=== PATIENT | male | born 1965 | race Caucasian/White ===

== ENCOUNTER → 2024-02-10 11:21 | Outpatient (CLI) | payer OTHER, SELFPAY ==
--- NOTE | 2024-02-10 11:25 | DI.MRI.S_ITS ---
PROCEDURE: MR PELVIC PROSTATE PROTOCOL INDICATIONS: Elevated PSA TECHNIQUE: Coronal HASTE, axial T1 FSE with fat saturation, 3-plane nonbreath-hold T2 FSE. After the administration of contrast, dynamic axial, delayed axial and coronal VIBE or 2-D FLASH with fat saturation through the pelvis. Diffusion weighted imaging and ADC was performed. COMPARISON: None. FINDINGS: Image quality: Diffusion weighted and dynamic contrast enhanced images are diagnostic. Prostate: Gland size is 5.8 x 4.7 x 5.3 cm; ellipsoid gland volume is 75 mL. Lesion 1: Location: Right anterior transition zone of the mid gland, on axial series 4, image 12 and coronal series 5, image 8. Size: 1.4 x 1.0 cm. T2W signal: Hypointense, partially capsulated. DWI signal: Markedly hyperintense. ADC signal: Markedly hypointense. Enhancement: Yes. Extracapsular extension: No. No neurovascular involvement. PI-RADS score: 3 Genitourinary system: Bladder wall thickness is normal. Distal ureters are non distended. Bowel and peritoneum: No pathologic free pelvic fluid. Inferior colon and small bowel loops are normal in caliber. Nodes and vessels: No pelvic or inguinal adenopathy by size criteria. Iliac vessels are normal in caliber. Soft tissues: Small amount of fat within the inguinal canals. Bones: Marrow demonstrates normal overall signal, without lesions to suggest metastases. IMPRESSION: PI-RADS 3 lesion in the anterior transition zone of the mid gland. No pelvic lymphadenopathy by size criteria. No aggressive osseous abnormality. Dictated by: Roby Francis M.D. on 02/10/2024 at 14:17 Approved by: Roby Francis M.D. on 02/10/2024 at 14:20
== END ==
PROVIDERS: Referring Provider Family Medicine; Visit Provider Family Medicine
DX: N42.9 Disorder of prostate, unspecified (principal); R97.20 Elevated prostate specific antigen [PSA]
CPT/HCPCS: 72197; A9579

== ENCOUNTER → 2024-09-16 16:32 | Outpatient (CLI) | payer BC, SELFPAY | PROVIDERS: PCP Family Medicine; Referring Provider Urology; Visit Provider Urology | DX: R97.20 Elevated prostate specific antigen [PSA] (principal) | CPT/HCPCS: 36415; 84153 ==

== ENCOUNTER → 2025-06-02 11:54 | Outpatient (CLI) | payer BC, SELFPAY ==
[2025-06-02 13:16] LABS: Alanine Aminotransferase 21 IU/L (<50); Albumin 4.7 g/dL (3.5-5.0); Albumin Globulin Ratio 1.7 (1.0-2.8); Alkaline Phosphatase 66 U/L (38-126); Blood Urea Nitrogen 12 mg/dL (9-20); Calcium 9.9 mg/dL (8.4-10.2); Carbon Dioxide 28 mmol/L (22-32); Chloride 102 mmol/L (98-107); Cholesterol 207 mg/dL (140-199); Estimated Glomerular Filt Rate > 60 mL/min (>60); Globulin 2.8 g/dL (1.7-4.1); Glucose 80 mg/dL (70-99); HDL Cholesterol 58 mg/dL (40-60); HEMOLYSIS < 15 (0-50); Potassium 4.4 mmol/L (3.4-5.1); Sodium 140 mmol/L (137-145); Total Protein 7.5 g/dL (6.3-8.2); Triglycerides 92 mg/dL (35-150)
[2025-06-02 13:48] LABS: Prostate Specific Antigen 8.55 ng/mL (0.10-4.00)
[2025-06-03 08:11] LABS: Interpretation Negative (Negative)
[2025-06-11 05:13] LABS: Percent Free Testosterone 3.23 % (1.50-4.20)
== END ==
PROVIDERS: PCP Family Medicine; Referring Provider Family Medicine; Visit Provider Family Medicine
DX: E29.1 Testicular hypofunction (principal); R97.20 Elevated prostate specific antigen [PSA]; R10.13 Epigastric pain; Z13.220 Encounter for screening for lipoid disorders
CPT/HCPCS: 36415; 80053; 80061; 83013; 84153; 84402; 84403

== ENCOUNTER → 2025-06-22 08:13 | Outpatient (CLI) | payer BC, SELFPAY ==
--- NOTE | 2025-06-22 08:15 | DI.US.S_ITS ---
PROCEDURE: US ABDOMEN LIMITED INDICATIONS: EPIGASTRIC PAIN TECHNIQUE: Real-time scanning was performed of the abdominal and retroperitoneal organs, with image documentation. COMPARISON: None. FINDINGS: Liver: Liver is normal in size and homogeneous in echotexture. Gallbladder: Multiple gallstones with largest stone measuring 1.8 centimeters. Non mobile stone in the gallbladder neck measuring 0.7 x 1.0 centimeters. No wall thickening. No pericholecystic edema. Negative sonographic Burnett's sign. Biliary ducts: Intrahepatic bile ducts are non-dilated. Extrahepatic bile duct caliber measures 4.1 mm. Normal is 6-7 mm or less in diameter, or 10 mm or less post-cholecystectomy. Pancreas: Visualized portions of the pancreas are sonographically normal. Tail of the pancreas not well visualized due to bowel gas and cannot be evaluated. Miscellaneous: No free abdominal fluid. IMPRESSION: Cholelithiasis without sonographic evidence of cholecystitis. If there is continued clinical concern for cholecystitis, a nuclear medicine HIDA scan should be considered for further evaluation. Dictated by: Rebeca Laird MD, PhD on 06/22/2025 at 11:26 Approved by: Rebeca Laird MD, PhD on 06/22/2025 at 11:27
--- NOTE | 2025-06-23 09:15 | DI.NM.S_ITS ---
DATE OF SERVICE: 06/22/2025 EXERCISE TREADMILL STRESS TEST PROCEDURE: Exercise treadmill stress test without imaging. ORDERING PROVIDER: Shruti Mckeon MD INDICATIONS: The patient is a 60-year-old male with atypical chest and epigastric discomfort. FINDINGS: 1. The patient was able to exercise for 8 minutes 33 seconds on a standard John protocol, suggesting average exercise capacity with an ANTONIO of -2%, achieving 10.1 METS. 2. He had a normal heart rate and blood pressure response to exercise, achieving a maximum heart rate of 158 bpm (100% of his predicted maximum). 3. He had moderate exertional dyspnea but no chest discomfort or other anginal symptoms. 4. His resting ECG shows sinus rhythm with borderline ST sagging in the inferolateral leads. With stress, these abnormalities become accentuated with 1 to 2 mm of flat to downsloping ST depression but become upsloping within 2 minutes into recovery and is nonspecific. A single isolated PVC was noted but no other arrhythmias. IMPRESSION: 1. Borderline abnormal exercise treadmill stress test for ischemia with mild ST depression that is nonspecific because of baseline abnormalities and prompt normalization in recovery. There are no high-risk indicators. If there is a high degree of clinical concern for ischemic heart disease, consider a stress imaging study. 2. Average exercise capacity without angina or arrhythmias except for a single isolated PVC. Liang Carl - ALVAREZ/wilfredo/CARSON doc#: [id number]/job#: [id number] dd: 06/22/2025 13:11:00 dt: 06/22/2025 21:31:00 DICTATING MD/COPIES TO: Jayme Love MD; Shruti Mckeon MD COPIES MNE: BERNADINE;
== END ==
LOC: NUCM 08:14
PROVIDERS: PCP Family Medicine; Referring Provider Family Medicine; Visit Provider Family Medicine
DX: K80.20 Calculus of gallbladder without cholecystitis without obstruction (principal); R10.13 Epigastric pain; R07.9 Chest pain, unspecified
CPT/HCPCS: 76705; 93017

== ENCOUNTER 2025-07-28 09:25 | Day surgery (SDC) | payer BC, SELFPAY ==
[2025-07-09 12:10] VITALS: BMI 23.7
[2025-07-28] VITALS (7 sets, daily range): BP systolic 131–143; BP diastolic 65–86; PULSE 72–86; RESP 14–16; TEMP 36.4; O2SAT 97
--- NOTE | 2025-07-28 | PATH_ITS ---
[facility] Accession Number: [id number] No. of containers..01 Tissue . 01 Material submitted: . gallbladder - GALLBLADDER . 01 Diagnosis: GALLBLADDER, CHOLECYSTECTOMY: Mild chronic cholecystitis with cholelithiasis. [facility] [place]2025 1426 Local . 01 Electronically signed: . Zhanna Polo DO, Pathologist NPI- [id number] . 01 Gross description: . Received in formalin with two patient identifiers, and gallbladder is an 8.5 x 3.9 x 3.5 cm, intact gallbladder. The serosa is green and smooth. The stapled cystic duct margin is inked blue. The mucosa is green and velvety with a uniform, 0.2 cm thick wall. The lumen contains green, viscous bile and multiple, 0.5-1.1 cm, green, nodular calculi. Lymph nodes are not grossly identified. Rn Palliative sections with cystic duct margin and gallbladder wall are submitted in A1. ([id number]) /MRV 07/30/2025 1440 Local . 01 Pathologist provided ICD-10: K80.20 . 01 CPT . 033807 Specimen Comment: A courtesy copy of this report has been sent to [phone] Performed at: [address] [facility] [address], [place], [place] [id number] MD Pankaj San MD Phone: [phone]
[2025-07-28] MEDS: LACTATED RINGERS 1,000 ML 42 ML IV (09:45)
[2025-07-28] MEDS: ACETAMINOPHEN IV 1,000 MG/100 ML VIAL 400 MG IV (09:46)
--- NOTE | 2025-07-28 10:59 | PM.PREOP ---
Pre-operative Note COVID-19 COVID-19 status: Not tested Interval Note History & Physical reviewed/Exam performed by Physician: Yes Changes to H&P: No ASA Class (for procedural sedation): I
[2025-07-28] MEDS: INDOCYANINE GREEN 25 MG VIAL IV (11:23)
--- NOTE | 2025-07-28 12:06 | SUR.OPER ---
Supine on padded OR bed, head on pillow,pink pad,arms padded and tucked at sides, legs uncrossed, safety belt at thigh, tape over blanket over lower legs, foot board .
--- NOTE | 2025-07-28 13:37 | P.OP_ITS ---
Operative Date/Time/Diagnoses Date of procedure: 07/28/25 Time of procedure: 13:38 Pre-op diagnosis: Symptomatic cholelithiasis Post-op diagnosis: same Procedure & Clinicians Procedure: Robotic cholecystectomy Same procedure(s) as scheduled: Yes Surgeon: Shiraz Gilmore Assisted?: No Anesthesia Type: General Operative Notes Findings: Gallstones Applied: none Estimated Blood Loss (mL): 9 Procedure in detail: The patient was given preoperative antibiotics. The patient was brought to the operating room, placed on the table in the supine position. General endotracheal anesthesia was induced. Both arms were tucked. The abdomen was prepped and draped. A time-out was performed. A cut down was performed at the infraumbilical fold. The umbilical stalk was grasped with a Tatiana clamp to elevate the abdominal wall. The fascia was scored with cautery and the peritoneum was pierced with a Peon clamp. The 12 mm port was placed and the abdomen was insufflated to 15 mmHg. The endoscope was inserted. There was no evidence of any injury from the entry. Next, two 8 mm ports were placed in the left abdomen and one in the right abdomen under direct vision. The patient was then positioned in 15? of reverse Trendelenburg and the table was tilted slightly to the left. The robot was brought in from the patient's left side and docked. A fenestrated bipolar was placed through arm 1, the hook cautery through arm 3 and the ProGrasp through arm 4. The gallbladder was grasped at the dome with the ProGrasp and retracted cephalad. There were some adhesions to the serosa of the gallbladder which were carefully dissected with cautery to allow full retraction of the gallbladder. We then dissected the cystic structures with hook cautery. We obtained a critical view. Firefly was used to visualize the cystic duct common duct junction. We then placed hemoclips on the cystic duct and artery and divided the cystic duct and artery between the clips. The gallbladder was then dissected off the liver and placed in a specimen retrieval bag. A small amount of blood was suctioned out of the right upper quadrant.. We then removed the 8 mm ports under direct vision we removed the 12 mm port. We then injected some local into the fascia and closed the fascia at the infraumbilical incision with two interrupted 0 Vicryl sutures. The skin incisions were closed with 4 Monocryl and Steri-Strips were applied. Band-Aids were applied over the Steri- Strips. Specimen: Gallbladder and contents Complications: none Post-operative Condition: stable Disposition: PACU
== END 2025-07-28 16:15 | disposition home or self-care (01) ==
PROVIDERS: PCP Family Medicine; Referring Provider Surgery; Visit Provider Surgery
PROC: 0FT44ZZ Resection of Gallbladder, Percutaneous Endoscopic Approach (ICD-10-PCS; CPT 47562; principal; 2025-07-28 10:45)
DX: K80.10 Calculus of gallbladder with chronic cholecystitis without obstruction (principal)
CPT/HCPCS: 47562; S2900; J0131; J0689; J1100; J1885; J2405; J2704; J3010; J7120